=== PATIENT | male | born 1985 | race Caucasian/White ===

== ENCOUNTER 2016-09-26 21:26 | Emergency (ER) | payer SELFPAY ==
--- NOTE | 2016-09-27 00:16 | ERNOTE ---
Lower Extremity HPI - Narrative Date of Service: 09/27/16 - General Lower Extremities Pain: ankle: right Time Seen by Provider: 09/27/16 00:12 Source: patient, family Exam Limitations: no limitations - Immun/Allergies/Home Medications Immunizations: IMMUNIZATION HX Immunizations Up to Date Yes History of Influenza Vaccine No Hx Pneumococcal Vaccination No Allergies/Adverse Reactions: Allergies Allergy/AdvReac Type Severity Reaction Status Date / Time No Known Allergies Allergy Unverified 12/30/13 13:28 Home Medications: HOME MEDICATIONS Lisinopril [Prinivil] 20 mg PO DAILY 12/30/13 [Last Taken Unknown] Acetaminophen with Codeine [Tylenol with Codeine #3 Tablet] 1 - 2 tab PO Q6H PRN #14 tab 09/27/16 [Last Taken Unknown] - History of Present Illness Narrative: STATES HURT RIGHT ANKLE 2 WEEKS AGO AND IS HERE C/O PAIN AND SWELLING INTO BACK OF RIGHT CALF SINCE THEN Review of Systems - Review of Systems Constitutional: Present: See HPI Musculoskeletal: Present: See HPI, joint pain All Other Systems: All systems neg except as marked - Patient's Past Medical History Patient History - Medical: GERD Patient History - Cardiac/Respiratory: Hypertension Patient History - Cancer: No Hx of Cancer Patient History - Surgical Procedures: No surgical history Patient History - Other: None - Social History Living Situations: home Abuse History: No History of abuse Psych History: No pertinent hx Smoking Status: Current every day smoker Patient requests Smoking Cessation Consult: No Initiate information on Smoking Cessation: No Alcohol Use: occasionally Drug Use: none - Immunizations Immunizations Up to Date: Yes Hx Pneumococcal Vaccination: No History of Influenza Vaccine: No Physical Exam - Physical Exam General Appearance: Present: wd/wn, alert, no apparent distress Peripheral Pulses: N=norm/S=strong/W=weak/B=bound/A=absent: Dorsalis-pedis (R): Normal Extremity Exam: Present: normal range of motion, pedal edema, bony tenderness, other - PT WITH SWOLLEN TENDER LATERAL RIGHT ANKLE AND DISTAL FIBULA WITH GOOD D. PEDIS PULSE AND REFILL AND SENSATION NO CALF PAIN OR SWELLING THOUGH RIGHT CALF MEASURES 1 CM GREATER THAN LEFT. HE IS RIGHT HANDED. HE IS POST TENDER OVER DISTAL 1/4 OF RIGHT FIBULA , NOT TO MEDIAL SIDE AT ALL AND NOT IN ACHILLES. Neurological Exam: Present: alert, oriented, normal mood/affect ED Progress - Vital Signs Patient's Vital Signs:: I have reviewed the patient's vital signs. Vital Signs: Vital Signs 09/26/16 21:45 Temperature 36.9 C Pulse Rate 105 H Respiratory 18 Rate Blood Pressure 156/84 O2 Sat by Pulse 98 Oximetry - X-Ray X-Ray #1 X-Ray: ankle - RIGHT DISTAL FIBULAR COMMINUTED BUT MINAMALLY DISPLACED FRACTURE. NO PROXIMAL FRACTURES SEEN. Interpretation: Interp. by me - Progress/Reassessment Chief Complaint: Lower Extremity Pain/ Injury Procedures Location: right ankle Pre-Proc Neuro Vasc Exam: normal Hand-Made Type: orthoglass Splint: sugar-tong Splint applied by: Nurse Post-Proc Neuro Vasc Exam: normal Complications: Pt ra procedure well Comment: WE WILL GET HIM CRUTCHES TOO. Departure Clinical Impression: Ankle pain, right Qualifiers: Chronicity: chronic Qualified Code(s): M25.571 - Pain in right ankle and joints of right foot; G89.29 - Other chronic pain - Departure Disposition: Home Follow Up Needed Condition: Good Instructions: Undisplaced Fibular Ankle Fracture Treated With Immobilization, Adult Additional Instructions: CRUTCHES WITH TOUCH WEIGHT BEARING ONLY SPLINT IS NOT A WALKING SPLINT. ELEVATE THE FOOT ABOVE THE LEVEL OF THE HEART WHEN POSSIBLE. WIGGLE THE TOES TO KEEP CIRCULATION GOING . TYLENOL #3 FOR EXTRA PAIN IF NEEDED IF IBUPROFEN OR ALEVE NOT HELPING ENOUGH. CALL THE ORTHOPEDIC CLINIC IN THE MORNING AND LET THEM KNOW YOU WERE HERE AND THEY WE HAD YOU CALL TO BE SEEN. Referrals: Augustus Connors MD [Staff Physician] - Prescriptions: Acetaminophen with Codeine [Tylenol with Codeine #3 Tablet] 1 - 2 tab PO Q6H PRN #14 tab PRN Reason: Pain
[2016-09-27 01:39] VITALS: BP 137/77
== END 2016-09-27 00:55 | disposition home or self-care (01) ==
LOC: ER 21:26
PROC: 2W3QX1Z Immobilization of Right Lower Leg using Splint (ICD-10-PCS; principal; 2016-09-26)
DX: M25.571 Pain in right ankle and joints of right foot (principal); G89.29 Other chronic pain; I10 Essential (primary) hypertension; F17.200 Nicotine dependence, unspecified, uncomplicated

== ENCOUNTER 2017-04-07 02:21 | Emergency (ER) | payer SELFPAY ==
[2017-04-07 02:34] VITALS: BP 141/90
--- NOTE | 2017-04-07 02:53 | ERNOTE ---
[facility] Date of Service: 04/07/17 Time Seen by Provider: 04/07/17 02:43 Source: patient Exam Limitations: no limitations - Immun/Allergies/Home Medications Immunizations: IMMUNIZATION HX Immunizations Up to Date Yes History of Influenza Vaccine No Hx Pneumococcal Vaccination No Allergies/Adverse Reactions: Allergies Allergy/AdvReac Type Severity Reaction Status Date / Time No Known Allergies Allergy Verified 04/07/17 02:34 Home Medications: HOME MEDICATIONS Lisinopril [Prinivil] 20 mg PO DAILY 12/30/13 [Last Taken Unknown] - History of Present Illness Narrative: 31 year old that noted the acute onset of bilateral blurred vision about 2 hours ago when he was watching music videos on his phone. The vision is improving, and is able to read print that is close. Has a headache earlier that has resolved. Yesterday drank alcohol heavily and has been drinking since noon. His father was an alcoholic that is in liver failure. No complaints of headache , N/V, diaphoresis, or pain. has been told by his physician that he should get glasses. Date (Duration): 04/07/17 Time (Timing): 02:58 Severity: Present: mild ENT Location: Present: eye (R), eye (L) Prearrival Treatment: Present: no prearrival treatment Modifying Factors - Improves: Reports: nothing Modifying Factors - Worsens: Reports: nothing Associated Symptoms - ENT: Reports: denies symptoms Review of Systems - Review of Systems Constitutional: Present: no symptoms reported EYE: Present: see HPI ENT: Present: no symptoms reported Respiratory: Present: no symptoms reported Cardiology: Present: no symptoms reported Gastrointestinal/Abdominal: Present: no symptoms reported Genitourinary: Present: no symptoms reported Musculoskeletal: Present: no symptoms reported Skin: Present: no symptoms reported Neurological: Present: no symptoms reported Endocrine: Present: no symptoms reported Hematologic/Lymphatic: Present: no symptoms reported Psych: Present: no symptoms reported - Patient's Past Medical History Patient History - Medical: GERD Patient History - Cardiac/Respiratory: Hypertension Patient History - Cancer: No Hx of Cancer Patient History - Surgical Procedures: No surgical history Patient History - Other: None - Social History Living Situations: home Abuse History: No History of abuse Psych History: No pertinent hx Smoking Status: Current every day smoker Alcohol Use: sober Drug Use: none - Immunizations Immunizations Up to Date: Yes Hx Pneumococcal Vaccination: No History of Influenza Vaccine: No Physical Exam - Physical Exam General Appearance: Present: no apparent distress Head Exam: Present: normal inspection Eye Exam: PERRL: bilateral, EOMI: bilateral, Other: bilateral - sleral injection Ears, Nose, Throat: Present: normal ENT inspection Neck: Present: normal inspection Respiratory: Present: no respiratory distress Cardiovascular/Chest: Present: regular rate, rhythm Gastrointestinal/Abdominal: Present: nondistended Back Exam: Present: normal inspection Extremity Exam: Present: normal inspection Neurological Exam: Present: alert, oriented, normal mood/affect Skin Exam: Present: normal color ED Progress - Vital Signs Vital Signs: Vital Signs 04/07/17 02:31 Temperature 2.6 C L Pulse Rate 99 Respiratory 18 Rate Blood Pressure 141/90 O2 Sat by Pulse 99 Oximetry - Progress/Reassessment Chief Complaint: Eye Injury/Trauma Progress:: Unchanged Departure Clinical Impression: Blurred vision, bilateral, Alcohol abuse - Departure Disposition: Home self-care Condition: Fair Instructions: Blurred Vision, Alcohol Use Disorder, Smoking Cessation, Tips for Success, [id number] Print Language: Upper Sorbian Additional Instructions: Follow up with your doctor in the next couple of weeks. See an eye doctor and get your vision checked this week. Discontinue smoking and drinking alcohol.
== END 2017-04-07 03:09 | disposition home or self-care (01) ==
LOC: ER 02:21
DX: H53.8 Other visual disturbances (principal); F10.10 Alcohol abuse, uncomplicated; F17.200 Nicotine dependence, unspecified, uncomplicated

== ENCOUNTER 2020-02-08 12:35 | Observation (INO) ==
[2020-02-08] MEDS ORDERED: NORMAL SALINE 1,000 ML IV ONE ×3 (13:29→21:43)
[2020-02-08] MEDS ORDERED: PANTOPRAZOLE SODIUM 40 MG/100 ML PIGGYBACK IV ONE (13:30)
[2020-02-08] MEDS ORDERED: ONDANSETRON HCL/PF 2 MG/ML VIAL IV ONE (13:30)
[2020-02-08 13:43] LABS: Hematocrit 44.1 % (42.0-52.0); Hemoglobin 16.1 gm/dL (13.5-18.0); Mean Cell Volume 107.8 fl (78-100); Mean Corpuscular Hemoglobin 39.4 pg (27-31); Mean Corpuscular Hgb Conc 36.5 g/dl (32-36); Mean Platelet Volume 11.1 fl (8-11.3); Neutrophil # 10.1 K/mm3 (1.3-6.0); Neutrophil % 84.2 % (42-75.0); Platelet Count 153 K/mm3 (150-450); Red Blood Count 4.09 M/mm3 (4.7-6.0); Red Cell Distribution Width 17.2 % (11.5-14.0); White Blood Count 12.1 K/mm3 (4.0-10.5)
--- NOTE | 2020-02-08 13:47 | ERNOTE ---
Medical Problem HPI - Narrative Date of Service: 02/08/20 - General Chief Complaint: Nausea/Vomiting Time Seen by Provider: 02/08/20 13:15 Source: patient Exam Limitations: no limitations - Immun/Allergies/Home Medications Immunizations: IMMUNIZATION HX Immunizations Up to Date Yes History of Influenza Vaccine No Hx Pneumococcal Vaccination No Allergies/Adverse Reactions: Allergies No Known Allergies Allergy (Verified 04/07/17 02:34) Home Medications: HOME MEDICATIONS Lisinopril [Prinivil] 20 mg PO DAILY 12/30/13 [Last Taken Unknown] - History of Present History Narrative: Patient presents to the ED for feeling fatigued, loss of appetite, vomiting with blood in it. He relates drinking a 5th of rum daily for a long time. Started cutting back and has now weaned himself back to 2 drinks per day. No other withdrawal symptoms. No specific abdominal pain. States he has vomited daily for a long time but over the last 2 weeks when he has vomited there has been blood in the vomit. No blood in the stool. One dark stool week ago. NO CP or SOB. No fever. Has not seen anyone else for this. Timing: intermittent Severity: mild Modifying Factors - (Improves): Present: other - nothing Modifying Factors - (Worsens): Present: other - nothing Review of Systems - Review of Systems Constitutional: Absent: fever EYE: Present: no symptoms reported ENT: Absent: sore throat Respiratory: Absent: shortness of breath Cardiology: Absent: chest pain Gastrointestinal/Abdominal: Present: See HPI Genitourinary: Absent: dysuria Neurological: Absent: weakness All Other Systems: All systems neg except as marked Medical History (Last Updated 02/08/20 @ 15:37 by Natalia Hartman RN) No pertinent past medical history Surgical History: Surgical History (Last Updated 02/08/20 @ 15:37 by Natalia Hartman RN) No pertinent past surgical history Family History: Family History (Last Updated 02/08/20 @ 15:38 by Natalia Hartman RN) Other No pertinent family history Social History: (Last Reviewed 02/08/20 @ 13:46 by Bobby Hickey MD) Tobacco: Smoking Status: Current every day smoker Physical Exam - Physical Exam General Appearance: Present: alert, no apparent distress Head Exam: Present: normal inspection, no evidence of injury Eye Exam: PERRL: bilateral, Other: bilateral - scleral icterus Ears, Nose, Throat: Present: normal ENT inspection Neck: Present: normal inspection Respiratory: Present: no respiratory distress, normal breath sounds, no accessory muscle use, lungs clear Cardiovascular/Chest: Present: normal peripheral pulses, tachycardia Gastrointestinal/Abdominal: Present: normal bowel sounds, nontender, soft, no organomegaly Back Exam: Absent: CVA tenderness (R), CVA tenderness (L) Extremity Exam: Present: normal inspection, normal range of motion Neurological Exam: Present: alert, no motor/sensory deficits, car checker II-XII nml as tested. Absent: motor weakness Skin Exam: Present: normal color, warm/dry Progress - Results and Orders Patient's Lab Results:: I have reviewed the patient's lab results. - Vital Signs Patient's Vital Signs:: I have reviewed the patient's vital signs. Vital Signs: Vital Signs 02/08/20 13:01 Temperature 36.7 C Pulse Rate 132 H Respiratory Rate 18 Blood Pressure 164/106 H O2 Sat by Pulse Oximetry 99 - CT/Ultrasound CT/Ultrasound Narrative: I personally reviewed official radiology report for US liver - Progress/Reassessment Chief Complaint: Nausea/Vomiting Progress Note-Subjective: 02/08/20 16:36 IV fluids given. IV Protonix. He needs hepatology and admission so I spoke [facility] that is full, could not accept transfer. I spoke [facility]. Dr Kaur who accepts patient but no bed available. He recommends patient be admitted here at [facility] and transfer to [facility] when bed available. Dr Ordoñez contacted and will admit pending transfer to [facility]. The patient clearly needs specialty evaluation. Dr Ordoñez will contact Hepatology at [facility] for additional management recommendations pending transfer. Departure Clinical Impression: Acute liver failure, Alcohol abuse, Hematemesis - Departure Disposition: Short Term Hospital Inpatient Condition: Fair
[2020-02-08 13:54] LABS: Prothrombin Time (Patient) 16.1 Seconds (9.1-10.7)
[2020-02-08 14:06] LABS: ALT 73 U/L (19-67); AST 205 U/L (0-48); Albumin * 2.7 gm/dl (3.4-5.0); Alkaline Phosphatase * 180 U/L (50-170); Anion Gap 16.4 mmol/L (6.8-13.8); BUN/Creatinine Ratio 6.3 (9.0-21.6); Bilirubin, Total 11.1 mg/dL (0.0-1.1); Blood Urea Nitrogen 6 mg/dL (6-23); Ca. Corrected For Albumin 10.5 mg/dL (8.4-10.2); Calcium * 9.8 mg/dL (7.9-10.9); Carbon Dioxide 24.5 mmol/L (24-32.6); Chloride 91 mmol/L (97-106); Glucose * 132 mg/dL (70-110); Lipase 162 U/L (73-393); Potassium 3.9 mmol/L (3.4-4.6); Sodium 128 mmol/L (132-142); Total Protein 7.5 gm/dL (6.2-8.2)
[2020-02-08 14:07] LABS: INR 1.66 INR (0.92-1.08); Partial Thrombolplastin Time 31.1 Seconds (24-32); Salicylate Less than 2.8 mg/dL (2.8-20.0)
[2020-02-08 14:24] LABS: Bilirubin Direct 8.1 mg/dL (0.0-0.3)
[2020-02-08 15:02] LABS: Urine Appearance Clear (CLEAR); Urine Bacteria 1+; Urine Bilirubin 6 mg/dl (NEGATIVE); Urine Blood 5 /ul (NEGATIVE); Urine Color Brown; Urine Ketone 15 mg/dL (NEGATIVE); Urine Nitrite Positive (NEGATIVE); Urine Protein 100 mg/dL (NEGATIVE); Urine RBC None Seen /hpf (0-5); Urine Specific Gravity 1.025 SP.GR. (1.005-1.030); Urine Urobilinogen >=8.0 EU/dl (NORMAL); Urine WBC 0-5 /hpf (0-5); Urine pH 6.5 pH (5.0-7.0)
[2020-02-08 15:26] LABS: Cocaine Ur Negative (NEGATIVE); Urine Barbiturate Negative (NEGATIVE); Urine Benzodiazepines Negative (NEGATIVE); Urine Opiates Negative (NEGATIVE); Urine PCP Negative (NEGATIVE); Urine THC Negative (NEGATIVE)
[2020-02-08] MEDS ORDERED: metroNIDAZOLE/SODIUM CHLORIDE 500 MG/100 ML BAG IV SCH (18:00)
[2020-02-08] MEDS ORDERED: NICOTINE 14 MG PATC TD SCH ×2 (18:30→21:00)
[2020-02-08] MEDS ORDERED: LIDOCAINE HCL 50 ML VIAL IM ONE (18:30)
--- NOTE | 2020-02-08 18:41 | HP ---
Chief Complaint - Chief Complaint Date of Service: 02/08/20 Time of Service: 18:22 Chief Complaint: I have been vomiting blood for the past week. History of Present Illness: 34-year-old male with past medical history of morbid obesity, chronic alcoholism, nicotine dependence was evaluated in the ER for ongoing hematemesis and epigastric pain for more than a week. Patient has a long history of abusing alcohol and reports drinking a bottle of rum mixed with coke per day for several years. He admits that he started drinking at the age of 21 and that his father of liver cirrhosis due to alcoholism. Patient reports earlier this year he quit drinking on his own but several months ago he started drinking again. He reports over a month ago he developed daily vomiting which became bloody a week ago, he became alarmed enough to come to the ER this morning. The patient reports poor appetite and and nausea not being unable to eat for more than a week. He denies constipation or diarrhea and says his last bowel movement was a few moments ago when he arrived to the [facility] floor. When the patient arrived to the ER he underwent labs which revealed a mild hyponatremia and significantly elevated liver enzymes and GGT as well as elevated bilirubin. Patient is currently jaundiced but does not show ascites which is usually associated with liver failure or cirrhosis. Abdominal ultrasound done in the ER confirmed significant hepatomegaly and changes due to liver cirrhosis. Patient is also a current smoker and smokes a pack of cigarette a day, therefore we will cover him with a nicotine patch during the hospitalization. The hepatology team at the [facility] has accepted the patient for transfer however there is currently no bed available, so the plan is to keep the patient here overnight and to start a work-up for his liver failure until a bed opens up at the [facility]. Dr. Oleksandr Ledesma made his recommendations for pancultures with blood and urine cultures to be sent to lab. He also requested a chest x-ray to look for any possible source of infection. Patient was found to also have a UTI although he denies any dysuria or urinary symptoms. Medical History (Last Updated 02/08/20 @ 17:40 by Erin Oates RN) Hypertension Surgical History: Surgical History (Last Updated 02/08/20 @ 17:40 by Erin Oates RN) No pertinent past surgical history Family History: Family History (Last Updated 02/08/20 @ 17:40 by Erin Oates RN) Father Cirrhosis Social History: (Last Updated 02/08/20 @ 17:43 by Erin Oates RN) Tobacco: Smoking Status: Current every day smoker tobacco type: cigarettes Smoking packs per day: 1 Years smoked: 20 Alcohol: alcohol intake: current Alcohol type: hard liquor alcohol intake frequency: 3 or more drinks per day counseling given: Yes counseling provided: other details: Mental Health Counseling in [place] 1 to 2 time per week months ago Substance Use: substance use type: does not use Peds Patient Hx - Developmental: No Pertinent Hx Peds Patient Hx - Medical: No Pertinent Hx Peds Patient Hx - Cardiac/Respiratory: No Pertinent Hx Peds Patient Hx - Surgical: No Surgical History Patient History - Cancer: No Hx of Cancer Review Of Systems (GEN) - Review of Systems Generalized/Overall Review: Present: No Symptoms Reported EENTM: Present: No Symptoms Reported Respiratory: Present: No Symptoms Reported Cardiac: Present: No Symptoms Reported Abdominal: Present: Nausea, Vomiting, Hematemesis, Abdominal Pain - Epigastric pain Genitourinary: Present: No Symptoms Reported Musculoskeletal: Present: No Symptoms Reported Neurological: Present: No Symptoms Reported Skin: Present: No Symptoms Reported Endocrine: Present: No Symptoms Reported Immunizations: IMMUNIZATION HX Immunizations Up to Date Yes History of Influenza Vaccine No Hx Pneumococcal Vaccination No Allergies/Adverse Reactions: Allergies Allergy/AdvReac Type Severity Reaction Status Date / Time No Known Allergies Allergy Verified 02/08/20 17:38 Home Medications: HOME MEDICATIONS NK 02/08/20 [Last Taken Unknown] Exam - Exam Vital Signs: Vital Signs - Last Taken Temp 36.9 C 02/08/20 17:25 Pulse 102 H 02/08/20 17:25 Resp 20 02/08/20 17:25 BP 149/82 H 02/08/20 17:25 Pulse Ox 96 02/08/20 17:25 Constitutional: Present: Alert, Oriented x3, Cooperative, Well developed, No distress, Morbidly obese ENT Exam: Present: normal ENT inspection, hearing grossly normal, pharynx normal, TMs normal Eye Exam: bilateral eye: PERRL, EOMI, scleral icterus Neck: Present: non-tender, full range of motion, supple, normal inspection, trachea midline Back Exam: Present: normal inspection, no CVA tenderness, no vertebral tenderness Breasts: Present: Exam deferred, Nontender Respiratory: Present: chest non-tender, lungs clear, normal breath sounds, no re spiratory distress, no accessory muscle use Cardiovascular/Chest: Present: normal peripheral pulses, regular rate, rhythm, no chest tenderness, no edema, no gallop, no JVD, no murmur, no rub Peripheral Pulses: dorsalis-pedis (R): 3+, dorsalis-pedis (L): 3+ Abdomen: Present: Normal bowel sounds, soft, nontender, no rebound tenderness, no hepatospenomegaly, no masses, obese, distended /Rectal: Present: Exam deferred Extremity: Present: normal range of motion, non-tender, normal inspection, no calf tenderness, normal capillary refill, pelvis stable, pedal edema - 1+ right- sided pedal edema Skin Exam: Present: normal color, warm/dry, no cyanosis Lymphatic: Present: no adenopathy Neurologic: Present: emissions 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 II-XII nml as tested, normal cerebellar test, no motor/sensory deficits, alert, normal mood/affect, oriented x 3 Appearance: Present: appropriate appearance, appropriate insight, neat, no memory impairment Eye contact: Present: cooperative, good eye contact, normal speech Thoughts: Present: normal thought pattern, no apparent hallucination Diagnostic Studies: Abnormal Lab Results 02/08/20 02/08/20 02/08/20 Range/Units 13:38 13:38 13:38 WBC 12.1 H (4.0-10.5) K/mm3 RBC 4.09 L (4.7-6.0) M/mm3 MCV 107.8 H (78-100) fl MCH 39.4 H (27-31) pg MCHC 36.5 H (32-36) g/dl RDW 17.2 H (11.5-14.0) % Immature Gran # (Auto) 0.04 H (0.000-0.0310) K/mm3 Neutrophils % 84.2 H (42-75.0) % Lymphocytes % 6.7 L (20-51) % Neutrophils # 10.1 H (1.3-6.0) K/mm3 Lymphocytes # 0.81 L (1.5-3.5) k/mm3 PT (9.1-10.7) Seconds INR (Anticoag Therapy) (0.92-1.08) INR Sodium 128 L (132-142) mmol/L Plasma Sodium 129 L (130-142) mmol/L Chloride 91 L (97-106) mmol/L Anion Gap 16.4 H (6.8-13.8) mmol/L BUN/Creatinine Ratio 6.3 L (9.0-21.6) Random Glucose 132 H (70-110) mg/dL Lactic Acid, Venous 4.0 H* (0.4-2.0) mmol/L Calcium Adj for Albumin 10.5 H (8.4-10.2) mg/dL Total Bilirubin 11.1 H (0.0-1.1) mg/dL Direct Bilirubin (0.0-0.3) mg/dL GGT (4-104) U/L AST 205 H (0-48) U/L ALT 73 H (19-67) U/L Alkaline Phosphatase 180 H (50-170) U/L Lactate Dehydrogenase (85-227) U/L Albumin 2.7 L (3.4-5.0) gm/dl Urine Protein (NEGATIVE) mg/dL Urine Glucose (UA) (NEGATIVE) mg/dL Urine Blood (NEGATIVE) /ul Urine Nitrate (NEGATIVE) Urine Bilirubin (NEGATIVE) mg/dl Urine Ictotest (NEGATIVE) Prot Sulfosalicylic Acd (0) mg/dL Urine Urobilinogen (NORMAL) EU/dl Ur Leukocyte Esterase (NEGATIVE) /ul Ur Epithelial Cells (0-5) /hpf Urine Bacteria (NONE) Salicylates Less than 2.8 L (2.8-20.0) mg/dL Acetaminophen Less than 0.2 L (10.0-30.0) mcg/mL 02/08/20 02/08/20 02/08/20 Range/Units 13:38 13:38 14:46 WBC (4.0-10.5) K/mm3 RBC (4.7-6.0) M/mm3 MCV (78-100) fl MCH (27-31) pg MCHC (32-36) g/dl RDW (11.5-14.0) % Immature Gran # (Auto) (0.000-0.0310) K/mm3 Neutrophils % (42-75.0) % Lymphocytes % (20-51) % Neutrophils # (1.3-6.0) K/mm3 Lymphocytes # (1.5-3.5) k/mm3 PT 16.1 H (9.1-10.7) Seconds INR (Anticoag Therapy) 1.66 H (0.92-1.08) INR Sodium (132-142) mmol/L Plasma Sodium (130-142) mmol/L Chloride (97-106) mmol/L Anion Gap (6.8-13.8) mmol/L BUN/Creatinine Ratio (9.0-21.6) Random Glucose (70-110) mg/dL Lactic Acid, Venous (0.4-2.0) mmol/L Calcium Adj for Albumin (8.4-10.2) mg/dL Total Bilirubin (0.0-1.1) mg/dL Direct Bilirubin 8.1 H (0.0-0.3) mg/dL GGT 713 H (4-104) U/L AST (0-48) U/L ALT (19-67) U/L Alkaline Phosphatase (50-170) U/L Lactate Dehydrogenase 436 H (85-227) U/L Albumin (3.4-5.0) gm/dl Urine Protein 100 H (NEGATIVE) mg/dL Urine Glucose (UA) 100 H (NEGATIVE) mg/dL Urine Blood 5 H (NEGATIVE) /ul Urine Nitrate Positive H (NEGATIVE) Urine Bilirubin 6 H (NEGATIVE) mg/dl Urine Ictotest Positive H (NEGATIVE) Prot Sulfosalicylic Acd 3+ H (0) mg/dL Urine Urobilinogen >=8.0 H (NORMAL) EU/dl Ur Leukocyte Esterase 75 H (NEGATIVE) /ul Ur Epithelial Cells 5-10 H (0-5) /hpf Urine Bacteria 1+ H (NONE) Salicylates (2.8-20.0) mg/dL Acetaminophen (10.0-30.0) mcg/mL 02/07/20 Range/Units 16:25 WBC (4.0-10.5) K/mm3 RBC (4.7-6.0) M/mm3 MCV (78-100) fl MCH (27-31) pg MCHC (32-36) g/dl RDW (11.5-14.0) % Immature Gran # (Auto) (0.000-0.0310) K/mm3 Neutrophils % (42-75.0) % Lymphocytes % (20-51) % Neutrophils # (1.3-6.0) K/mm3 Lymphocytes # (1.5-3.5) k/mm3 PT (9.1-10.7) Seconds INR (Anticoag Therapy) (0.92-1.08) INR Sodium (132-142) mmol/L Plasma Sodium (130-142) mmol/L Chloride (97-106) mmol/L Anion Gap (6.8-13.8) mmol/L BUN/Creatinine Ratio (9.0-21.6) Random Glucose (70-110) mg/dL Lactic Acid, Venous 3.4 H* (0.4-2.0) mmol/L Calcium Adj for Albumin (8.4-10.2) mg/dL Total Bilirubin (0.0-1.1) mg/dL Direct Bilirubin (0.0-0.3) mg/dL GGT (4-104) U/L AST (0-48) U/L ALT (19-67) U/L Alkaline Phosphatase (50-170) U/L Lactate Dehydrogenase (85-227) U/L Albumin (3.4-5.0) gm/dl Urine Protein (NEGATIVE) mg/dL Urine Glucose (UA) (NEGATIVE) mg/dL Urine Blood (NEGATIVE) /ul Urine Nitrate (NEGATIVE) Urine Bilirubin (NEGATIVE) mg/dl Urine Ictotest (NEGATIVE) Prot Sulfosalicylic Acd (0) mg/dL Urine Urobilinogen (NORMAL) EU/dl Ur Leukocyte Esterase (NEGATIVE) /ul Ur Epithelial Cells (0-5) /hpf Urine Bacteria (NONE) Salicylates (2.8-20.0) mg/dL Acetaminophen (10.0-30.0) mcg/mL Laboratory Results WBC 12.1 K/mm3 (4.0-10.5) H 02/08/20 13:38 RBC 4.09 M/mm3 (4.7-6.0) L 02/08/20 13:38 Hgb 16.1 gm/dL (13.5-18.0) 02/08/20 13:38 Hct 44.1 % (42.0-52.0) 02/08/20 13:38 MCV 107.8 fl (78-100) H 02/08/20 13:38 MCH 39.4 pg (27-31) H 02/08/20 13:38 MCHC 36.5 g/dl (32-36) H 02/08/20 13:38 RDW 17.2 % (11.5-14.0) H 02/08/20 13:38 Plt Count 153 K/mm3 (150-450) 02/08/20 13:38 MPV 11.1 fl (8-11.3) 02/08/20 13:38 Immature Gran % (Auto) 0.30 % (0.001-0.429) 02/08/20 13:38 Immature Gran # (Auto) 0.04 K/mm3 (0.000-0.0310) H 02/08/20 13:38 Neutrophils % 84.2 % (42-75.0) H 02/08/20 13:38 Lymphocytes % 6.7 % (20-51) L 02/08/20 13:38 Monocytes % 7.9 % (0.0-9) 02/08/20 13:38 Eosinophils % 0.2 % (0.0-3.0) 02/08/20 13:38 Basophils % 0.7 % (0.0-1.0) 02/08/20 13:38 Nucleated RBC % 0.0 k/mm3 (0-1) 02/08/20 13:38 Neutrophils # 10.1 K/mm3 (1.3-6.0) H 02/08/20 13:38 Lymphocytes # 0.81 k/mm3 (1.5-3.5) L 02/08/20 13:38 Monocytes # 1.0 k/mm3 (0.0-1.0) 02/08/20 13:38 Eosinophils # 0.0 k/mm3 (0.0-0.7) 02/08/20 13:38 Absolute Basophils 0.1 k/mm3 (0.0-0.1) 02/08/20 13:38 PT 16.1 Seconds (9.1-10.7) H 02/08/20 13:38 INR (Anticoag Therapy) 1.66 INR (0.92-1.08) H 02/08/20 13:38 PTT (Portia) 31.1 Seconds (24-32) 02/08/20 13:38 Sodium 128 mmol/L (132-142) L 02/08/20 13:38 Plasma Sodium 129 mmol/L (130-142) L 02/08/20 13:38 Potassium 3.9 mmol/L (3.4-4.6) 02/08/20 13:38 Chloride 91 mmol/L (97-106) L 02/08/20 13:38 Carbon Dioxide 24.5 mmol/L (24-32.6) 02/08/20 13:38 Anion Gap 16.4 mmol/L (6.8-13.8) H 02/08/20 13:38 BUN 6 mg/dL (6-23) 02/08/20 13:38 Creatinine 0.96 mg/dL (0.4-1.4) 02/08/20 13:38 Est GFR (Non-Af Amer) 96 mL/min (60-130) 02/08/20 13:38 BUN/Creatinine Ratio 6.3 (9.0-21.6) L 02/08/20 13:38 Random Glucose 132 mg/dL (70-110) H 02/08/20 13:38 Lactic Acid, Venous 3.4 mmol/L (0.4-2.0) H* 02/08/20 16:25 Calcium 9.8 mg/dL (7.9-10.9) 02/08/20 13:38 Calcium Adj for Albumin 10.5 mg/dL (8.4-10.2) H 02/08/20 13:38 Total Bilirubin 11.1 mg/dL (0.0-1.1) H 02/08/20 13:38 Direct Bilirubin 8.1 mg/dL (0.0-0.3) H 02/08/20 13:38 GGT 713 U/L (4-104) H 02/08/20 13:38 AST 205 U/L (0-48) H 02/08/20 13:38 ALT 73 U/L (19-67) H 02/08/20 13:38 Alkaline Phosphatase 180 U/L (50-170) H 02/08/20 13:38 Ammonia Less than 17.0 mcmol/L (11-35) 02/08/20 14:20 Lactate Dehydrogenase 436 U/L (85-227) H 02/08/20 13:38 Total Protein 7.5 gm/dL (6.2-8.2) 02/08/20 13:38 Albumin 2.7 gm/dl (3.4-5.0) L 02/08/20 13:38 Lipase 162 U/L (73-393) 02/08/20 13:38 Urine Color Brown 02/08/20 14:46 Urine Appearance Clear (CLEAR) 02/08/20 14:46 Urine pH 6.5 pH (5.0-7.0) 02/08/20 14:46 Ur Specific [place] 1.025 SP.GR. (1.005-1.030) 02/08/20 14:46 Urine Protein 100 mg/dL (NEGATIVE) H 02/08/20 14:46 Urine Glucose (UA) 100 mg/dL (NEGATIVE) H 02/08/20 14:46 Urine Ketones 15 mg/dL (NEGATIVE) 02/08/20 14:46 Urine Blood 5 /ul (NEGATIVE) H 02/08/20 14:46 Urine Nitrate Positive (NEGATIVE) H 02/08/20 14:46 Urine Bilirubin 6 mg/dl (NEGATIVE) H 02/08/20 14:46 Urine Ictotest Positive (NEGATIVE) H 02/08/20 14:46 Prot Sulfosalicylic Acd 3+ mg/dL (0) H 02/08/20 14:46 Urine Urobilinogen >=8.0 EU/dl (NORMAL) H 02/08/20 14:46 Ur Leukocyte Esterase 75 /ul (NEGATIVE) H 02/08/20 14:46 Urine RBC None seen /hpf (0-5) 02/08/20 14:46 Urine WBC 0-5 /hpf (0-5) 02/08/20 14:46 Ur Epithelial Cells 5-10 /hpf (0-5) H 02/08/20 14:46 Urine Bacteria 1+ (NONE) H 02/08/20 14:46 Urine Culture Comments Culture to follow 02/08/20 14:46 Stool Occult Blood Negative 02/08/20 15:31 Salicylates Less than 2.8 mg/dL (2.8-20.0) L 02/08/20 13:38 Urine Opiates Screen Negative (NEGATIVE) 02/08/20 14:46 Acetaminophen Less than 0.2 mcg/mL (10.0-30.0) L 02/08/20 13:38 Barbiturate Screen Negative (NEGATIVE) 02/08/20 14:46 Ur Phencyclidine Scrn Negative (NEGATIVE) 02/08/20 14:46 Urine Amphetamine Negative (NEGATIVE) 02/08/20 14:46 U Benzodiazepines Scrn Negative (NEGATIVE) 02/08/20 14:46 Urine Cocaine Screen Negative (NEGATIVE) 02/08/20 14:46 Urine Marijuana (THC) Negative (NEGATIVE) 02/08/20 14:46 Ethyl Alcohol 3.0 mg/dL (0.0-10.0) 02/08/20 13:38 Assessment/Plan - Narrative Narrative: Patient was evaluated medical chart was reviewed and decision to admit for obse rvation to [facility] for diagnosis of severe alcoholic hepatitis and hyponatremia was made. Patient is severely ill, this was confirmed by the lens maker at the [facility]. The doctor suggested having a alycia talk with the patient explaining his poor prognosis and to explain to him that there is no guarantee that he will get a liver transplant. Unfortunately without liver transplants patients with this diagnosis do not survive. Patient is in [facility] resting comfortably, he denies any pain and physical exam was negative for ascites. Chest x-ray has been blood and urine cultures were ordered as recommended by the hepatology team at the [facility]. We will follow-up with the results and treat the patient accordingly. In the meantime we will keep him on IV fluids and IV antibiotics. The patient is a smoker so we will cover him with a nicotine patch. Alcohol withdrawal protocol was ordered for regular checks and PRN orders for anxiolytics was also ordered. We will continue to monitor the patient closely. - Assessment/Plan (1) Acute alcoholic hepatitis Problem: Acute (2) Hepatic cirrhosis Problem: Acute Qualifiers: Hepatic cirrhosis type: alcoholic cirrhosis (3) Morbid obesity Problem: Chronic (4) Nicotine dependence Problem: Acute Qualifiers: Nicotine product type: cigarettes Substance use status: other nicotine- induced disorder Qualified Code(s): F17.218 - Nicotine dependence, cigarettes, with other nicotine-induced disorders (5) UTI (urinary tract infection) Problem: Acute (6) Hyponatremia Problem: Acute (7) Hematemesis Problem: Acute
[2020-02-08] MEDS ORDERED: NICOTINE 21 MG PATC TD ONE (21:08)
[2020-02-08] MEDS: ENOXAPARIN SODIUM 40 MG/0.4 ML SYRG SC SCH (21:12)
[2020-02-09] MEDS: PANTOPRAZOLE SODIUM 40 MG in NORMAL SALINE 100 ML IV SCH ×2 (02:24→14:14)
[2020-02-09 06:32] LABS: Hematocrit 38.4 % (42.0-52.0); Hemoglobin 13.9 gm/dL (13.5-18.0); Mean Cell Volume 109.4 fl (78-100); Mean Corpuscular Hemoglobin 39.6 pg (27-31); Mean Corpuscular Hgb Conc 36.2 g/dl (32-36); Mean Platelet Volume 11.1 fl (8-11.3); Neutrophil # 6.6 K/mm3 (1.3-6.0); Neutrophil % 72.7 % (42-75.0); Platelet Count 131 K/mm3 (150-450); Red Blood Count 3.51 M/mm3 (4.7-6.0); Red Cell Distribution Width 17.5 % (11.5-14.0)
[2020-02-09 06:43] LABS: Albumin * 2.2 gm/dl (3.4-5.0); Anion Gap 12.3 mmol/L (6.8-13.8); BUN/Creatinine Ratio 7.1 (9.0-21.6); Bilirubin, Total 7.9 mg/dL (0.0-1.1); Ca. Corrected For Albumin 9.4 mg/dL (8.4-10.2); Calcium * 8.3 mg/dL (7.9-10.9); Carbon Dioxide 24.7 mmol/L (24-32.6); Total Protein 6.2 gm/dL (6.2-8.2)
--- NOTE | 2020-02-09 09:51 | PN ---
Subjective - Date and Time Seen Date: 02/09/20 Time: 09:47 Subjective Narrative: I have less nausea now. Objective Objective Narrative: 34-year-old male admitted for severe alcoholic hepatitis and UTI was evaluated at bedside was found to be afebrile and in no acute distress. Patient has shown clinical improvement since starting the treatment here in the hospital. He reports resolved nausea and less abdominal discomfort. Labs this morning reveal significant improvement in his liver enzymes which are trending down in fact his ALT is now normal. Sodium levels also on a upward trend although they are still not within normal range. We will continue the current treatment with IV hydration and antibiotics. Transfer to the [facility] where the patient can be evaluated and treated by hepatology team is pending since there are no beds available. - Review of Systems Generalized/Overall Review: Reports: No Symptoms Reported EENTM: Reports: No Symptoms Reported Respiratory: Reports: No Symptoms Reported Cardiac: Reports: No Symptoms Reported Abdominal: Reports: No Symptoms Reported Genitourinary Symptoms: Reports: No Symptoms Reported Musculoskeletal Complaints: Reports: No Symptoms Reported Neurological: Reports: No Symptoms Reported Skin: Reports: Other - Jaundiced skin Endocrine: Reports: No Symptoms Reported - Vitals Vitals: Last Vital Signs Temp 36.8 C 02/09/20 06:35 Pulse 79 02/09/20 08:41 Resp 12 02/09/20 06:35 BP 123/70 02/09/20 06:35 Pulse Ox 90 L 02/09/20 06:35 - Abnormal Lab Findings Abnormal Lab Findings: Abnormal Lab Results 02/08/20 02/08/20 02/08/20 Range/Units 13:38 13:38 13:38 WBC 12.1 H (4.0-10.5) K/mm3 RBC 4.09 L (4.7-6.0) M/mm3 Hct (42.0-52.0) % MCV 107.8 H (78-100) fl MCH 39.4 H (27-31) pg MCHC 36.5 H (32-36) g/dl RDW 17.2 H (11.5-14.0) % Plt Count (150-450) K/mm3 Immature Gran # (Auto) 0.04 H (0.000-0.0310) K/mm3 Neutrophils % 84.2 H (42-75.0) % Lymphocytes % 6.7 L (20-51) % Monocytes % (0.0-9) % Neutrophils # 10.1 H (1.3-6.0) K/mm3 Lymphocytes # 0.81 L (1.5-3.5) k/mm3 Monocytes # (0.0-1.0) k/mm3 PT (9.1-10.7) Seconds INR (Anticoag Therapy) (0.92-1.08) INR Sodium 128 L (132-142) mmol/L Plasma Sodium 129 L (130-142) mmol/L Chloride 91 L (97-106) mmol/L Anion Gap 16.4 H (6.8-13.8) mmol/L BUN/Creatinine Ratio 6.3 L (9.0-21.6) Random Glucose 132 H (70-110) mg/dL Lactic Acid, Venous 4.0 H* (0.4-2.0) mmol/L Calcium Adj for Albumin 10.5 H (8.4-10.2) mg/dL Total Bilirubin 11.1 H (0.0-1.1) mg/dL Direct Bilirubin (0.0-0.3) mg/dL GGT (4-104) U/L AST 205 H (0-48) U/L ALT 73 H (19-67) U/L Alkaline Phosphatase 180 H (50-170) U/L Lactate Dehydrogenase (85-227) U/L Albumin 2.7 L (3.4-5.0) gm/dl Urine Protein (NEGATIVE) mg/dL Urine Glucose (UA) (NEGATIVE) mg/dL Urine Blood (NEGATIVE) /ul Urine Nitrate (NEGATIVE) Urine Bilirubin (NEGATIVE) mg/dl Urine Ictotest (NEGATIVE) Prot Sulfosalicylic Acd (0) mg/dL Urine Urobilinogen (NORMAL) EU/dl Ur Leukocyte Esterase (NEGATIVE) /ul Ur Epithelial Cells (0-5) /hpf Urine Bacteria (NONE) Salicylates Less than 2.8 L (2.8-20.0) mg/dL Acetaminophen Less than 0.2 L (10.0-30.0) mcg/mL 02/08/20 02/08/20 02/08/20 Range/Units 13:38 13:38 14:46 WBC (4.0-10.5) K/mm3 RBC (4.7-6.0) M/mm3 Hct (42.0-52.0) % MCV (78-100) fl MCH (27-31) pg MCHC (32-36) g/dl RDW (11.5-14.0) % Plt Count (150-450) K/mm3 Immature Gran # (Auto) (0.000-0.0310) K/mm3 Neutrophils % (42-75.0) % Lymphocytes % (20-51) % Monocytes % (0.0-9) % Neutrophils # (1.3-6.0) K/mm3 Lymphocytes # (1.5-3.5) k/mm3 Monocytes # (0.0-1.0) k/mm3 PT 16.1 H (9.1-10.7) Seconds INR (Anticoag Therapy) 1.66 H (0.92-1.08) INR Sodium (132-142) mmol/L Plasma Sodium (130-142) mmol/L Chloride (97-106) mmol/L Anion Gap (6.8-13.8) mmol/L BUN/Creatinine Ratio (9.0-21.6) Random Glucose (70-110) mg/dL Lactic Acid, Venous (0.4-2.0) mmol/L Calcium Adj for Albumin (8.4-10.2) mg/dL Total Bilirubin (0.0-1.1) mg/dL Direct Bilirubin 8.1 H (0.0-0.3) mg/dL GGT 713 H (4-104) U/L AST (0-48) U/L ALT (19-67) U/L Alkaline Phosphatase (50-170) U/L Lactate Dehydrogenase 436 H (85-227) U/L Albumin (3.4-5.0) gm/dl Urine Protein 100 H (NEGATIVE) mg/dL Urine Glucose (UA) 100 H (NEGATIVE) mg/dL Urine Blood 5 H (NEGATIVE) /ul Urine Nitrate Positive H (NEGATIVE) Urine Bilirubin 6 H (NEGATIVE) mg/dl Urine Ictotest Positive H (NEGATIVE) Prot Sulfosalicylic Acd 3+ H (0) mg/dL Urine Urobilinogen >=8.0 H (NORMAL) EU/dl Ur Leukocyte Esterase 75 H (NEGATIVE) /ul Ur Epithelial Cells 5-10 H (0-5) /hpf Urine Bacteria 1+ H (NONE) Salicylates (2.8-20.0) mg/dL Acetaminophen (10.0-30.0) mcg/mL 02/08/20 02/09/20 02/09/20 Range/Units 16:25 06:10 06:10 WBC (4.0-10.5) K/mm3 RBC 3.51 L (4.7-6.0) M/mm3 Hct 38.4 L (42.0-52.0) % MCV 109.4 H (78-100) fl MCH 39.6 H (27-31) pg MCHC 36.2 H (32-36) g/dl RDW 17.5 H (11.5-14.0) % Plt Count 131 L (150-450) K/mm3 Immature Gran # (Auto) (0.000-0.0310) K/mm3 Neutrophils % (42-75.0) % Lymphocytes % 13.4 L (20-51) % Monocytes % 11.6 H (0.0-9) % Neutrophils # 6.6 H (1.3-6.0) K/mm3 Lymphocytes # 1.21 L (1.5-3.5) k/mm3 Monocytes # 1.1 H (0.0-1.0) k/mm3 PT (9.1-10.7) Seconds INR (Anticoag Therapy) (0.92-1.08) INR Sodium 130 L (132-142) mmol/L Plasma Sodium (130-142) mmol/L Chloride (97-106) mmol/L Anion Gap (6.8-13.8) mmol/L BUN/Creatinine Ratio 7.1 L (9.0-21.6) Random Glucose (70-110) mg/dL Lactic Acid, Venous 3.4 H* (0.4-2.0) mmol/L Calcium Adj for Albumin (8.4-10.2) mg/dL Total Bilirubin 7.9 H (0.0-1.1) mg/dL Direct Bilirubin (0.0-0.3) mg/dL GGT (4-104) U/L AST 175 H (0-48) U/L ALT (19-67) U/L Alkaline Phosphatase (50-170) U/L Lactate Dehydrogenase (85-227) U/L Albumin 2.2 L (3.4-5.0) gm/dl Urine Protein (NEGATIVE) mg/dL Urine Glucose (UA) (NEGATIVE) mg/dL Urine Blood (NEGATIVE) /ul Urine Nitrate (NEGATIVE) Urine Bilirubin (NEGATIVE) mg/dl Urine Ictotest (NEGATIVE) Prot Sulfosalicylic Acd (0) mg/dL Urine Urobilinogen (NORMAL) EU/dl Ur Leukocyte Esterase (NEGATIVE) /ul Ur Epithelial Cells (0-5) /hpf Urine Bacteria (NONE) Salicylates (2.8-20.0) mg/dL Acetaminophen (10.0-30.0) mcg/mL - Exam Constitutional: Present: Alert, Oriented x3, Cooperative, Well developed, No distress, Morbidly obese ENT Exam: Present: normal ENT inspection, hearing grossly normal, pharynx normal, TMs normal Neck: Present: non-tender, full range of motion, supple, normal inspection, trachea midline Breasts: Present: Exam deferred, Nontender Respiratory: Present: chest non-tender, lungs clear, normal breath sounds, no respiratory distress, no accessory muscle use Cardiovascular/Chest: Present: normal peripheral pulses, regular rate, rhythm, no chest tenderness, no edema, no gallop, no JVD, no murmur, no rub Abdomen: Present: Normal bowel sounds, soft, nontender, no rebound tenderness, no masses, obese /Rectal: Present: Exam deferred Extremity: Present: normal range of motion, non-tender, normal inspection, no pedal edema, no calf tenderness, normal capillary refill, pelvis stable Skin Exam: Present: normal color, warm/dry, no cyanosis Lymphatic: Present: no adenopathy Neurologic: Present: reproduction artist II-XII nml as tested, no motor/sensory deficits, alert, normal mood/affect, oriented x 3 Appearance: Present: appropriate appearance, appropriate insight, neat, no memory impairment Eye contact: Present: cooperative, good eye contact, normal speech Thoughts: Present: normal thought pattern, no apparent hallucination Assessment/Plan Plan Narrative: We will await the opening of a bed at the [facility], but in the meantime we will continue current management. Follow-up CMP has been ordered for tomorrow morning to reevaluate the patient's hepatic enzymes and bilirubin levels. - Problems/Diagnosis (1) Acute alcoholic hepatitis Problem: Acute (2) Hepatic cirrhosis Problem: Acute Qualifiers: Hepatic cirrhosis type: alcoholic cirrhosis (3) Morbid obesity Problem: Chronic (4) Nicotine dependence Problem: Acute Qualifiers: Nicotine product type: cigarettes Substance use status: other nicotine- induced disorder Qualified Code(s): F17.218 - Nicotine dependence, cigarettes, with other nicotine-induced disorders (5) UTI (urinary tract infection) Problem: Acute (6) Hyponatremia Problem: Acute (7) Hematemesis Problem: Resolved
[2020-02-09] MEDS: NICOTINE 21 MG PATC TD SCH ×2 (09:56→15:07)
[2020-02-09] MEDS: ENOXAPARIN SODIUM 40 MG/0.4 ML SYRG SC SCH (17:35)
[2020-02-09] MEDS ORDERED: REMOVE NICOTINE TP SCH (21:00)
[2020-02-10] MEDS: PANTOPRAZOLE SODIUM 40 MG in NORMAL SALINE 100 ML IV SCH (02:07)
[2020-02-10 06:45] LABS: Albumin * 2.1 gm/dl (3.4-5.0); Anion Gap 8.6 mmol/L (6.8-13.8); BUN/Creatinine Ratio 5.1 (9.0-21.6); Bilirubin, Total 7.1 mg/dL (0.0-1.1); Ca. Corrected For Albumin 9.6 mg/dL (8.4-10.2); Calcium * 8.4 mg/dL (7.9-10.9); Carbon Dioxide 30.2 mmol/L (24-32.6); Potassium 3.8 mmol/L (3.4-4.6)
[2020-02-10] MEDS: NICOTINE 21 MG PATC TD SCH (09:21)
--- NOTE | 2020-02-10 10:58 | DS ---
(1) Acute alcoholic hepatitis Problem: Acute (2) Hepatic cirrhosis Problem: Acute Qualifiers: Hepatic cirrhosis type: alcoholic cirrhosis (3) Morbid obesity Problem: Chronic (4) Nicotine dependence Problem: Chronic Qualifiers: Nicotine product type: cigarettes Substance use status: other nicotine- induced disorder Qualified Code(s): F17.218 - Nicotine dependence, cigarettes, with other nicotine-induced disorders (5) UTI (urinary tract infection) Problem: Resolved (6) Hyponatremia Problem: Acute (7) Hematemesis Problem: Resolved Date of Discharge:: 02/10/20 Hospital Course: 34-year-old male admitted for severe alcoholic hepatitis, UTI, hematemesis, and hyponatremia was evaluated at bedside this morning was found to be afebrile and in no acute distress. Patient reports feeling much better, his nausea and vomiting has completely resolved and he is tolerating oral intake without any issues. The patient's hepatic enzymes and bilirubin have significantly decreased since arriving. A discussion was held with the hepatology team at the [facility] who originally recommended that the patient be transferred for evaluation and treatment but due to the difficulty obtaining a bed, a consensus was reached that the patient will be discharged and will follow up with hematology on an outpatient basis. This was explained to the patient and he agreed to be discharged home and he was provided with a follow-up appointment with hematology. He was also instructed to establish with a PCP since he is without a doctor currently. The patient was counseled once again on the importance of abstaining from alcohol consumption and quitting smoking in order to avoid worsening of his health condition specifically liver cirrhosis. He responded that he will make an effort to do just that. I will discharge him home with orders to repeat a CMP in 3 days to reevaluate hepatic enzymes and bilirubin levels. Patient will also be provided with a prescription for p.o. Protonix to protect his stomach. Procedures Performed: none Results and Findings: Pending Mircobiology Results 02/08/20 18:29 Blood Blood Culture - Preliminary NO GROWTH 24 HOURS 02/08/20 13:38 Blood Blood Culture - Preliminary NO GROWTH 24 HOURS Lab Pending Results 02/08/20 13:38: WBC 12.1 H, RBC 4.09 L, Hgb 16.1, Hct 44.1, MCV 107.8 H, MCH 39.4 H, MCHC 36.5 H, RDW 17.2 H, Plt Count 153, MPV 11.1, Immature Gran % (Auto) 0.30, Immature Gran # (Auto) 0.04 H, Neutrophils % 84.2 H, Lymphocytes % 6.7 L, Monocytes % 7.9, Eosinophils % 0.2, Basophils % 0.7, Nucleated RBC % 0.0, Ne utrophils # 10.1 H, Lymphocytes # 0.81 L, Monocytes # 1.0, Eosinophils # 0.0, Absolute Basophils 0.1 02/08/20 13:38: Sodium 128 L, Plasma Sodium 129 L, Potassium 3.9, Chloride 91 L, Carbon Dioxide 24.5, Anion Gap 16.4 H, BUN 6, Creatinine 0.96, Est GFR (Non-Af Amer) 96, BUN/Creatinine Ratio 6.3 L, Random Glucose 132 H, Calcium 9.8, Calcium Adj for Albumin 10.5 H, Total Bilirubin 11.1 H, AST 205 H, ALT 73 H, Alkaline Phosphatase 180 H, Total Protein 7.5, Albumin 2.7 L, Lipase 162, Salicylates Less than 2.8 L, Acetaminophen Less than 0.2 L, Ethyl Alcohol 3.0 02/08/20 13:38: Lactic Acid, Venous 4.0 H* 02/08/20 13:38: PT 16.1 H, INR (Anticoag Therapy) 1.66 H, PTT ([place]) 31.1 02/08/20 13:38: Direct Bilirubin 8.1 H, GGT 713 H, Lactate Dehydrogenase 436 H 02/08/20 14:20: Ammonia Less than 17.0 02/08/20 14:46: Urine Color Brown, Urine Appearance Clear, Urine pH 6.5, Ur Specific [place] 1.025, Urine Protein 100 H, Urine Glucose (UA) 100 H, Urine Ketones 15, Urine Blood 5 H, Urine Nitrate Positive H, Urine Bilirubin 6 H, Urine Ictotest Positive H, Prot Sulfosalicylic Acd 3+ H, Urine Urobilinogen >=8.0 H, Ur Leukocyte Esterase 75 H, Urine RBC None seen, Urine WBC 0-5, Ur Epithelial Cells 5-10 H, Urine Bacteria 1+ H, Urine Culture Comments Culture to follow 02/08/20 14:46: Urine Opiates Screen Negative, Barbiturate Screen Negative, Ur Phencyclidine Scrn Negative, Urine Amphetamine Negative, U Benzodiazepines Scrn Negative, Urine Cocaine Screen Negative, Urine Marijuana (THC) Negative 02/08/20 15:31: Stool Occult Blood Negative 02/08/20 16:25: Lactic Acid, Venous 3.4 H* 02/09/20 06:10: WBC 9.0 D, RBC 3.51 L, Hgb 13.9, Hct 38.4 L, MCV 109.4 H, MCH 39.6 H, MCHC 36.2 H, RDW 17.5 H, Plt Count 131 L, MPV 11.1, Immature Gran % (Auto) 0.20, Immature Gran # (Auto) 0.02, Neutrophils % 72.7, Lymphocytes % 13.4 L, Monocytes % 11.6 H, Eosinophils % 1.3, Basophils % 0.8, Nucleated RBC % 0.0, Neutrophils # 6.6 H, Lymphocytes # 1.21 L, Monocytes # 1.1 H, Eosinophils # 0.1, Absolute Basophils 0.1 02/09/20 06:10: Sodium 130 L, Plasma Sodium 130, Potassium 4.0, Chloride 97, Carbon Dioxide 24.7, Anion Gap 12.3, BUN 7, Creatinine 0.98, Est GFR (Non-Af Amer) 94, BUN/Creatinine Ratio 7.1 L, Random Glucose 91 D, Calcium 8.3, Calcium Adj for Albumin 9.4, Total Bilirubin 7.9 H, AST 175 H, ALT 59, Alkaline Phosphatase 140, Total Protein 6.2, Albumin 2.2 L Discharge Location: Home Disposition: Home self-care Condition: Fair Face to Face Encounter completed per [facility] Guidelines: No Discharge Activity: Activity as tolerated Discharge Diet: General/regular food Additional Patient Instructions (free text): Establish with new Primary Care Physician Dr.Alan Jc with an appointment on FridayFebruary 15 at 3pm. Please fax chart records to [phone] Follow up with [facility] Hepat[facility] clinic- call [phone], [address] Appointment with Dr. Calderon will be on 04-07-2020 at 1:45pm. Prescriptions (Any new or edited meds): Nicotine [Nicoderm] 21 mg TD Q24H #10 patch.[id number] Transmission Status: Pending to [facility] #[id number] Pantoprazole Sodium [Protonix] 20 mg PO BID #60 tab Complete Home Medications List: Complete Home Medication List: Nicotine [Nicoderm] 21 mg TD Q24H #10 patch.[id number] 02/10/20 Pantoprazole Sodium [Protonix] 20 mg PO BID #60 tab 02/10/20 Amb Orders for Discharge: Comprehensive Metabolic Panel Time Frame: 3 Days, Facility: [facility], Location: Laboratory
[2020-02-10 13:00] VITALS: BP 135/85
== END 2020-02-10 13:10 | disposition home or self-care (01) ==
LOC: MS 12:35 → ER 12:35 → MS 17:00
PROVIDERS: ADMIT Family Medicine; ATTEND Family Medicine